=== PATIENT | female | born 1985 | race Caucasian/White ===

== ENCOUNTER 2024-07-25 06:31 | Outpatient (REF) | payer OTHER, SELFPAY ==
--- NOTE | ~2024-07-25 | US_ITS ---
CLINICAL HISTORY: HYDRONEPHROSIS WITH RENAL STONES AND URETERAL OBSTRUCTION US Renal Comparison: None Findings: Right kidney normal size and echotexture, 13.2 cm length. Left kidney normal size and echotexture, 12.4 cm length. No hydronephrosis of either kidney. Normal color Doppler. Urinary bladder is unremarkable. Prevoid volume 199 mL. Postvoid volume 23 mL. Bilateral ureteral jets are visualized. The prostate measures 3.3 x 3.3 x 3.2 cm. IMPRESSION: 1. Normal kidneys. This document has been electronically signed by: Marco Antonio Olguin MD on 07/25/2024 18:31:54
== END 2024-07-25 06:32 | disposition home or self-care (01) ==
LOC: HO.UMASIMG 06:31
PROVIDERS: Visit Provider Family Medicine
DX: N20.9 Urinary calculus, unspecified (principal)
CPT/HCPCS: 76770

== ENCOUNTER → 2024-07-25 11:30 | Outpatient (BNV) | payer OTHER, SELFPAY | PROVIDERS: Visit Provider Specialist | DX: N20.0 Calculus of kidney (principal) | CPT/HCPCS: 76770 ==